=== PATIENT | female | born 1995 | race African-American/Black ===

== ENCOUNTER 2017-02-06 21:03 | Emergency (ER) | payer MEDICAID, OTHER ==
[~2017-02-06] VITALS: Ht 157.5 cm; Wt 57.0 kg
[2017-02-06 21:05] VITALS: BP 130/65; PULSE 114; RESP 15; TEMP 98; O2SAT 100
--- NOTE | 2017-02-06 21:49 | PD ---
HPI Chief Complaint: Complaint Time Seen by Provider: 21:49 Travel History International Travel<30 days: No Contact w/Intl Traveler<30days: No Traveled to known affect area: No History of Present Illness HPI 21-year-old female came to the emergency room with history of dysuria that started this morning. Increased frequency but every time she goes in only a few drops of urine comes out. She says she has a little bit of tingling and burning sensation eyes no significant discomfort or distress. Patient was slightly tachycardic when she came in. She otherwise appears to be in no significant distress. No history of significant vaginal discharge. [facility] Past Medical History Narrative Medical List of her past medical, surgical, social and family history is reviewed from the nursing note. Developmental Delay: No Diminished Hearing: No Respiratory: Yes (HOSPITALIZED FOR SHORTNESS OF BREATH ) Immunizations Current: Yes Tetanus Vaccination: Never Vaccinated Influenza Vaccination: No ?: Not LMP: 02/03/17 Social History Alcohol Use: No Tobacco Use: No Substance Use: No Allergies-Medications (Allergen,Severity, Reaction): Coded Allergies: No Known Allergies (Unverified , 02/06/17) Comments No known drug allergies. Reported Meds & Prescriptions Reported Meds & Active Scripts Active Macrobid (Nitrofurantoin Monoh/Nitrofur Macro) 100 Mg Cap 100 Mg PO BID 5 Days Narrative Medication List of her home medications reviewed from the nursing note. Review of Systems Except as stated in HPI: all other systems reviewed are Neg Physical Exam Narrative GENERAL: Awake, alert, no obvious distress SKIN: Focused skin assessment warm/dry. HEAD: Atraumatic. Normocephalic. EYES: Pupils equal and round. No scleral icterus. No injection or drainage. ENT: No nasal bleeding or discharge. Mucous membranes pink and moist. NECK: Trachea midline. No JVD. CARDIOVASCULAR: Regular rate and rhythm. No murmur appreciated. RESPIRATORY: No accessory muscle use. Clear to auscultation. Breath sounds equal bilaterally. GASTROINTESTINAL: Abdomen soft, non-tender, nondistended. Hepatic and splenic margins not palpable. MUSCULOSKELETAL: No obvious deformities. No clubbing. No cyanosis. No edema. NEUROLOGICAL: Awake and alert. No obvious cranial nerve deficits. Motor grossly within normal limits. Normal speech. PSYCHIATRIC: Appropriate mood and affect; insight and judgment normal. Data Data Last Documented VS Vital Signs Date Time Temp Pulse Resp B/P (MAP) Pulse Ox O2 Delivery O2 Flow Rate FiO2 02/06/17 22:33 02/06/17 21:05 98.0 114 15 100 Room Air Orders Orders Urinalysis - C+S If Indicated (02/06/17 21:32) Urine Culture (02/06/17 21:40) Nitrofurantoin Monohyd Macrocr (Macrobid (02/06/17 22:15) Labs Laboratory Tests Test 02/06/17 21:40 Urine Color YELLOW Urine Turbidity HAZY Urine pH 6.0 Urine Specific [place] 1.020 Urine Protein 30 mg/dL Urine Glucose (UA) NEG mg/dL Urine Ketones NEG mg/dL Urine Occult Blood MOD Urine Nitrite NEG Urine Bilirubin NEG Urine Urobilinogen LESS THAN 2.0 MG/DL Urine Leukocyte Esterase MOD Urine RBC 14 /hpf Urine WBC 61 /hpf Urine Squamous Epithelial Cells 1 /hpf Urine Mucus MANY /lpf Microscopic Urinalysis Comment CULTURE INDICATED MDM Medical Decision Making Medical Screen Exam Complete: Yes Emergency Medical Condition: Yes Medical Record Reviewed: Yes Differential Diagnosis Cystitis Narrative Course 10:10 PM UA that was ordered prior to assessing the patient came back and is positive for UTI. I've given her a dose of Macrobid. Since patient is not in significant discomfort I have not given her anything for pain. She'll be discharged home on prescription. Procedures EKG Prior to Arrival: No Diagnosis Primary Impression: Cystitis Referrals: Primary Care Physician Additional Instructions: Please return to the ER if the condition worsens or any other new concerns. Take the medication as per the prescription direction. Drink cranberry juice and lots of water Med/Other Pt SpecificInfo: Prescription(s) given Scripts Nitrofurantoin Monohydrate Macrocrystals (Macrobid) 100 Mg Cap 100 MG PO BID for Infection for 5 Days, CAP 0 Refills Prov: Kajal Fernandes MD 02/06/17 Disposition: 01 DISCHARGE HOME Condition: Stable Kajal Fernandes MD Feb 06, 2017 21:49
[2017-02-06 21:54] LABS: BLOOD, URINE MOD (NEG); COMMENT (UR) CULTURE INDICATED; CULTURE IF INDICATED CULTURE INDICATED; GLUCOSE,URINE NEG (NEG); KETONE, URINE NEG (NEG); MUCUS URINE MANY /lpf (OCC); NITRITE,URINE NEG (NEG); SQUAMOUS EPITHELIAL CELL URINE 1 /hpf (0-5); URINE COLOR YELLOW (YELLW/STRAW)
[2017-02-06] MEDS ORDERED: MACR100C2 PO (22:11)
[2017-02-06] MEDS ORDERED: NITROFURANTOIN MONOHYD MACROCR 100 MG CAP PO ONE (22:15)
== END 2017-02-06 22:35 | disposition home or self-care (01) ==
LOC: NEPD 21:03
DX: N30.91 Cystitis, unspecified with hematuria (principal); R00.0 Tachycardia, unspecified; Z87.09 Personal history of other diseases of the respiratory system
CPT/HCPCS: 81001; 87086; 99283

== ENCOUNTER 2017-04-17 21:26 | Emergency (ER) | payer MEDICAID ==
[~2017-04-17 21:26] MED LIST: MACR100C2 PO
[2017-04-17 21:29] VITALS: BP 123/64; PULSE 85; RESP 15; TEMP 97.4; O2SAT 100
--- NOTE | 2017-04-17 22:32 | PD ---
HPI Chief Complaint: Complaint Time Seen by Provider: 22:12 Travel History International Travel<30 days: No Contact w/Intl Traveler<30days: No Traveled to known affect area: No History of Present Illness HPI 21-year-old female here for evaluation of possible urinary tract infection. Since yesterday the patient has had increased urinary frequency and dysuria. She denies vaginal bleeding or discharge. Her LMP was one month ago. No abdominal pain. No fevers or chills. No nausea or vomiting. PFSH Past Medical History Developmental Delay: No Diminished Hearing: No Respiratory: Yes (HOSPITALIZED FOR SHORTNESS OF BREATH ) Immunizations Current: Yes ?: Not LMP: 03/22/17 Social History Alcohol Use: No Tobacco Use: No Substance Use: No Allergies-Medications (Allergen,Severity, Reaction): Coded Allergies: No Known Allergies (Verified Adverse Reaction, Unknown, 04/17/17) Reported Meds & Prescriptions Reported Meds & Active Scripts Active Review of Systems Except as stated in HPI: all other systems reviewed are Neg Physical Exam Narrative GENERAL: Well-developed, well-nourished, comfortable, no apparent distress. SKIN: Focused skin assessment warm/dry. No rash. HEAD: Atraumatic. Normocephalic. EYES: Pupils equal and round. No scleral icterus. No injection or drainage. ENT: Mucous membranes pink and moist. NECK: Trachea midline. No JVD. CARDIOVASCULAR: Regular rate and rhythm. No murmur appreciated. RESPIRATORY: No accessory muscle use. Clear to auscultation. Breath sounds equal bilaterally. GASTROINTESTINAL: Abdomen soft, non-tender, nondistended. MUSCULOSKELETAL: No obvious deformities. No clubbing. No cyanosis. No edema. No CVA tenderness. NEUROLOGICAL: Awake and alert. No obvious cranial nerve deficits. Motor grossly within normal limits. Normal speech. PSYCHIATRIC: Appropriate mood and affect; insight and judgment normal. Data Data Last Documented VS Vital Signs Date Time Temp Pulse Resp B/P (MAP) Pulse Ox O2 Delivery O2 Flow Rate FiO2 04/17/17 21:29 97.4 85 15 123/64 (83) 100 Room Air Orders Orders Urinalysis - C+S If Indicated (04/17/17 21:46) Ed Urine Pregnancytest Poc (04/17/17 22:11) Urine Culture (04/17/17 21:47) Labs Laboratory Tests Test 04/17/17 21:47 Urine Color LIGHT-YELLOW Urine Turbidity HAZY Urine pH 7.0 Urine Specific [place] 1.012 Urine Protein NEG mg/dL Urine Glucose (UA) NEG mg/dL Urine Ketones NEG mg/dL Urine Occult Blood NEG Urine Nitrite POS Urine Bilirubin NEG Urine Urobilinogen LESS THAN 2.0 MG/DL Urine Leukocyte Esterase TRACE Urine RBC LESS THAN 1 /hpf Urine WBC 9 /hpf Urine Squamous Epithelial Cells 3 /hpf Urine Bacteria MANY /hpf Microscopic Urinalysis Comment CULTURE INDICATED MDM Medical Decision Making Medical Screen Exam Complete: Yes Emergency Medical Condition: Yes Medical Record Reviewed: Yes Differential Diagnosis UTI, cystitis, , ectopic , BV, PID, Trichomonas Narrative Course Vital signs are within normal limits. UA: Hazy, positive nitrites, trace leukocyte esterase, 9 wbc's, many bacteria. Patient is denying pelvic pain. She is also denying vaginal discharge. On physical exam there is no abdominal or pelvic tenderness. Plan is to start her on Macrobid as this helped with her previous UTI. PMD follow-up this week. She was informed on when to return to the emergency department. She verbalizes understanding and agreement with plan. Diagnosis Primary Impression: UTI (urinary tract infection) Qualified Codes: N30.00 - Acute cystitis without hematuria Referrals: [facility] [address] 3 days Additional Instructions: Follow-up with a primary care physician this week. Take antibody as prescribed. Return to the emergency department for worsening symptoms or any other concerns. Scripts Nitrofurantoin Monohydrate Macrocrystals (Macrobid) 100 Mg Cap 100 MG PO BID for Infection for 5 Days, #10 CAP 0 Refills Prov: Keyshawn Mast MD 04/17/17 Disposition: 01 DISCHARGE HOME Condition: Stable Keyshawn Mast MD Apr 17, 2017 22:32
[2017-04-17 22:41] LABS: BACTERIA, URINE MANY /hpf; BLOOD, URINE NEG (NEG); COMMENT (UR) CULTURE INDICATED; CULTURE IF INDICATED CULTURE INDICATED; GLUCOSE,URINE NEG (NEG); KETONE, URINE NEG (NEG); NITRITE,URINE POS (NEG); SQUAMOUS EPITHELIAL CELL URINE 3 /hpf (0-5); URINE COLOR LIGHT-YELLOW (YELLW/STRAW)
[2017-04-17] MEDS ORDERED: MACR100C2 PO (23:12)
[2017-04-17] MEDS ORDERED: NITROFURANTOIN MONOHYD MACROCR 100 MG CAP PO ONE (23:15)
== END 2017-04-18 00:25 | disposition home or self-care (01) ==
LOC: NEPD 21:26
DX: N30.00 Acute cystitis without hematuria (principal); B96.89 Other specified bacterial agents as the cause of diseases classified elsewhere
CPT/HCPCS: 81001; 84703; 87077; 87086; 87186; 99283